=== PATIENT | male | born 1995 | race Caucasian/White ===

== ENCOUNTER 2021-07-17 13:51 | Observation (INO) | payer BC ==
[2021-07-17] MEDS ORDERED: Insulin Regular, Human 100 Units/ML 10 ML Vial IVPUSH ONE (14:34)
[2021-07-17] MEDS ORDERED: Sodium Chloride 0.9% 1,000 ML IV ONE ×2 (14:34→14:38)
[2021-07-17 15:16] LABS: CHLORIDE,CL 89 mmol/L (98-107); POTASSIUM,K 4.6 mmol/L (3.5-5.1); SODIUM,NA 126 mmol/L (136-148)
[2021-07-17 15:34] LABS: BLOOD UREA NITROGEN,BUN 25 mg/dL (7.0-18.0); CARBON DIOXIDE,CO2 25.9 mmol/L (21.0-32.0)
[2021-07-17 15:46] LABS: ESTIMATED GFR > 60.0 ml/min; GLUCOSE RANDOM 677 mg/dL (74-106)
[2021-07-17] MEDS ORDERED: 50% Dextrose in Water 50 ML Syringe IVPUSH PRN ×2 (18:13→21:11)
[2021-07-17] MEDS ORDERED: Glucagon,Human Recombinant 1 MG Vial IM PRN ×2 (18:13→21:11)
[2021-07-17] MEDS: Sodium Chloride 0.9% 1,000 ML IV SCH (18:31)
[2021-07-17] MEDS: Insulin Aspart 100 Units/ML 3 ML Pen SUBCUT SCH (21:37)
[2021-07-18] MEDS: Insulin Aspart 100 Units/ML 3 ML Pen SUBCUT SCH ×3 (01:07→08:58)
[2021-07-18] MEDS ORDERED: Insulin Aspart 100 Units/ML 3 ML Pen SUBCUT SCH (07:30)
[2021-07-18 07:40] LABS: BLOOD UREA NITROGEN,BUN 18 mg/dL (7.0-18.0); CARBON DIOXIDE,CO2 27.1 mmol/L (21.0-32.0); CHLORIDE,CL 102 mmol/L (98-107); ESTIMATED GFR > 60.0 ml/min; GLUCOSE RANDOM 251 mg/dL (74-106); SODIUM,NA 136 mmol/L (136-148)
[2021-07-18 07:54] LABS: HEMOGLOBIN A1C 12.3 %
[2021-07-18] MEDS: Sodium Chloride 0.9% 1,000 ML IV SCH (10:43)
[2021-07-18] MEDS ORDERED: Insulin Glargine,Human Rec. Analog 100 Units/ML 3 ML Pen SUBCUT SCH (21:00)
== END 2021-07-18 12:57 | disposition home or self-care (01) ==
LOC: MW.ED 13:51 → MW.MS 16:57
PROVIDERS: ADMIT Internal Medicine; ATTEND Internal Medicine
DX: E10.65 Type 1 diabetes mellitus with hyperglycemia (principal); E86.0 Dehydration; N17.9 Acute kidney failure, unspecified; K21.9 Gastro-esophageal reflux disease without esophagitis; Z20.822 Contact with and (suspected) exposure to COVID-19
CPT/HCPCS: 36415; 71045; 80048; 80053; 80305; 81003; 82009; 82803; 82947; 83036; 83735; 83880; 84443; 84484; 85025; 87635; 93005; 96360; 96361; 99285; G0378; J1815; J7030; 93010; 99219; 99284; U0002